=== PATIENT | male | born 1955 | race Two or more races ===

== ENCOUNTER → 2016-08-14 | Day surgery (SDC) | payer OTHER ==
[~2016-08-14] VITALS: Ht 170.2 cm; Wt 106.6 kg
[2016-08-14] VITALS (18 sets, daily range): BP systolic 116–141; BP diastolic 70–89
[~2016-08-14] MED LIST: HYZAAR 50-12.51 EACH ORAL; Lidocaine 1% Plain 30 ml INJ ONE; METFORMIN HCL500 M1 ORAL; Midazolam 2mg/2ml Inj ONE; Morphine Sulfate 4mg/ml Inj IVP ONE; PROSCAR5 MG ORAL; Sodium Bicarbonate 8.4% 50ml Inj ONE; TAMSULOSIN HCL0.4 MG ORAL; fentaNYL 100 mcg/2 mL IV ONE
[2016-08-14 08:29] LABS: BASOPHILS % (AUTO) 0.8 % (0.0-2.0); EOSINOPHILS % (AUTO) 6.4 % (0.0-3.0); LYMPHOCYTES % (AUTO) 27.2 % (20.0-45.0); MEAN CORPUSCULAR HEMOGLOBIN 32.2 PG (27.0-31.0); MEAN CORPUSCULAR HGB CONC 33.8 G/DL (32.0-36.0); MEAN CORPUSCULAR VOLUME 95 FL (80-99); MEAN PLATELET VOLUME 8.3 FL (6.5-10.1); MONOCYTES % (AUTO) 6.6 % (1.0-10.0); PLATELET COUNT 103 K/UL (150-450); RED BLOOD COUNT 4.54 M/UL (4.70-6.10); RED CELL DISTRIBUTION WIDTH 12.9 % (11.6-14.8); WHITE BLOOD COUNT 6.3 K/UL (4.8-10.8)
[2016-08-14 08:40] LABS: INR 1.3 (0.9-1.1); PROTHROMBIN TIME 13.6 SEC (9.30-11.50)
--- NOTE | 2016-08-14 11:21 | Pre-Procedure Note/Attestation ---
Pre-Procedure Note/Attestation Complete Prior to Procedure Planned Procedure: not applicable Procedure Narrative: US guided liver bx Indications for Procedure Pre-Operative Diagnosis: fatty liver Attestation I attest that I discussed the nature of the procedure; its benefits; risks and complications; and alternatives (and the risks and benefits of such alternatives ), prior to the procedure, with the patient (or the patient's legal b2b outside sales representative). I attest that, if there was a reasonable possibility of needing a blood transfusion, the patient (or the patient's legal b2b outside sales representative) was given the [facility] standardized written summary, pursuant to the Yariel Izaiah Blood Safety Act ([place] Health and Safety Code # 1645, as amended). I attest that I re-evaluated the patient just prior to the surgery and that there has been no change in the patient's H&P, except as documented below: ADAMS BRYANT M.D. Aug 14, 2016 11:21
--- NOTE | 2016-08-14 11:21 | Moderate Sedation - Procedural ---
Moderate Sedation HPI Home Medication Reported Medications Metformin Hcl* (METFORMIN HCL*) 500 Mg Tablet, 500 MG ORAL DA, TAB 08/14/16 Tamsulosin Hcl (TAMSULOSIN HCL*) 0.4 Mg Cap.er.24h, 0.4 MG ORAL BEDTIME, CAP 08/14/16 Finasteride* (PROSCAR*) 5 Mg Tablet, 5 MG ORAL DAILY, #30 TAB 0 Refills 08/14/16 Losartan/Hydrochlorothiazide 50-12.5 Tablet* (HYZAAR 50-12.5 TABLET*) 1 Each Tablet, 1 TAB ORAL DAILY, TAB 08/14/16 Patient History Allergies: Coded Allergies: SULFA (SULFONAMIDE ANTIBIOTICS) (Verified Allergy, Severe, 08/14/16) SKIN RASH PAST MEDICAL HISTORY: Past Surgeries: Social History: Pre-Procedural Mod Sedation Date: Aug 14, 2016 Pre-Sedation Assessment: Elective Airway Assessment (Malampati): III Evaluation Hx of untoward rxns to mod sed: No Procedures/Plans: Radiology Plan for Moderate Sedation: Midazolam, Fentanyl ASA Score: I Informed Consent The nature of the procedure/sedation; its benefits; risks and complications; and alternatives (and the risks and benefits of such alternatives) were discussed with the patient (or their legal exhibit display representative), prior to the procedure. All questions were answered to the patient's (or their legal exhibit display representative's) satisfaction and the patient (or their legal exhibit display representative) gave informed consent to the procedure. I attest that I re-evaluated the patient just prior to the surgery and that there has been no change in the patient's H&P, except as documented below: Post Procedure Assessment Communication: No Apparent Limitation Mental Status: Awake Respiration: Unlabored Skin Condition: WNL Adomen: WNL Nausea: NO Vomiting: NO ADAMS BRYANT M.D. Aug 14, 2016 11:21
--- NOTE | 2016-08-14 11:48 | Diagnostic Imaging Report ---
Indication: Abdominal pain Technique: Yuen-scale and duplex images of the upper abdomen were obtained Comparison: None Findings: Gallbladder is surgically absent. Common bile duct measures 6 mm in diameter. No intrahepatic biliary ductal dilatation. Liver demonstrates coarsened echogenicity. There is liver surface micro-nodularity. No focal abnormality. Portal vein and hepatic veins are patent.. Pancreas is unremarkable. Spleen is enlarged, measuring 15.2 cm long axis dimension. Left kidney measures 12.4 cm in length. Right kidney measures 12.4 cm length. Both kidneys demonstrate normal echogenicity. There is no hydronephrosis. No focal abnormality. . Abdominal aorta is partially obscured by bowel gas, visualized portions are non-aneurysmal. Impression: Coarsened hepatic echogenicity and liver surface micro-nodularity, consistent with reported clinical history of hepatic cirrhosis Surgically absent gallbladder. Negative for biliary ductal dilatation Splenomegaly, may indicate portal hypertension
[2016-08-14] MEDS: Norco 10mg/325mg tab ORAL PRN ×2 (12:20→12:23)
--- NOTE | 2016-08-14 14:41 | Diagnostic Imaging Report ---
Indication: History of hepatic steatosis, liver biopsy for clinical trial Technique: Informed consent obtained prior to commencement of the procedure. Risks, including but not limited to hemorrhage, infection, sampling error, sedation complications discussed with patient, all questions answered. He indicated his willingness to proceed. Procedure timeout performed. Ultrasound used to localize optimal puncture site in the right hepatic lobe. Skin sterilely prepped and draped. Local anesthesia with 1% lidocaine. Under real-time ultrasound guidance, 2 needle passes made into the right hepatic lobe using 16-gauge achieve biopsy gun. Images were archived. Specimens were placed in formalin. Specimen was taken by clinical trial nurseLeta, for appropriate dispensation. The patient tolerated the procedure well, without immediate complication. Fentanyl and Versed were used for intraprocedural sedation and analgesia Comparison: None Findings: Intraprocedural images document needle placement within the right hepatic lobe Impression: Parenchymal biopsy of right hepatic lobe, as described
== END | disposition home or self-care (01) ==
LOC: SUR 08:10 → ULS 08:10
DX: K76.0 Fatty (change of) liver, not elsewhere classified (principal); R16.1 Splenomegaly, not elsewhere classified; Z88.2 Allergy status to sulfonamides
CPT/HCPCS: 36415; 47000; 76700; 76942; 82962; 85025; 85610; 85730; J2001; J2250; J3010; J3490

== ENCOUNTER 2016-09-25 09:30 | Outpatient (CLI) | payer OTHER ==
[~2016-09-25 09:30] MED LIST changes: -Lidocaine 1% Plain 30 ml INJ ONE; -Midazolam 2mg/2ml Inj ONE; -Morphine Sulfate 4mg/ml Inj IVP ONE; -Sodium Bicarbonate 8.4% 50ml Inj ONE; -fentaNYL 100 mcg/2 mL IV ONE
--- NOTE | 2016-09-25 12:54 | Diagnostic Imaging Report ---
Indication: PAIN liver cirrhosis Technique: Yuen-scale and duplex images of the upper abdomen were obtained Comparison: 08/14/2016 Findings: Gallbladder is surgically absent. Sonographic Edward's sign is negative. Common bile duct measures 5 mm in diameter. No intrahepatic biliary ductal dilatation. The liver demonstrates diffusely coarsened echogenicity, compatible with diffuse parenchymal disease. There is mild surface micro-nodularity. No focal abnormality. Is somewhat enlarged. Portal vein and hepatic veins are patent. Pancreas is unremarkable. The spleen is enlarged, long axis 14.5 cm. Left kidney measures 12.6 cm in length. Right kidney measures 11.9 cm length. Both kidneys demonstrate normal echogenicity. There is no hydronephrosis. There is a 13 mm cyst in the lower pole right kidney. Non-aneurysmal abdominal aorta . No significant interim change, except that the left renal cyst was not demonstrated on the previous exam. Impression: Surgically absent gallbladder. Negative for dilated ducts Enlarged echogenic liver with surface micro-nodularity, consistent with known history of hepatic cirrhosis, also previously described Splenomegaly Incidental finding left renal cyst
== END 2016-09-25 11:00 | disposition home or self-care (01) ==
LOC: ULS 09:30
DX: K76.0 Fatty (change of) liver, not elsewhere classified (principal); R16.1 Splenomegaly, not elsewhere classified; N28.1 Cyst of kidney, acquired; Z90.49 Acquired absence of other specified parts of digestive tract
CPT/HCPCS: 76700

== ENCOUNTER 2018-02-18 11:28 | Outpatient (CLI) | payer OTHER | END 2018-02-18 13:28 | disposition home or self-care (01) | LOC: ULS 11:28 | DX: K76.0 Fatty (change of) liver, not elsewhere classified (principal) | CPT/HCPCS: 76700 ==

== ENCOUNTER 2018-07-29 11:02 | Outpatient (CLI) | payer OTHER ==
--- NOTE | 2018-07-29 14:28 | Diagnostic Imaging Report ---
Indication: Abdominal pain, history of nonalcoholic fatty liver disease Technique: Uyen-scale and duplex images of the upper abdomen were obtained. Doppler interrogation of the hepatic and pancreatic vessels Comparison: 02/18/2018 Findings: Gallbladder is surgically absent. Common bile duct measures 4 mm in diameter. No intrahepatic biliary ductal dilatation. Liver demonstrates coarsened echogenicity, and some surface nodularity. This is also demonstrated previously. No focal abnormality Portal vein and hepatic veins are patent. Pancreas is incompletely visualized due to overlying bowel gas, visualized portions are unremarkable. The spleen is enlarged, measuring 14.5 cm long axis dimension Left kidney measures 12.7 cm in length. Right kidney measures 12 cm length. Both kidneys demonstrate normal echogenicity. There is no hydronephrosis. A small cyst is seen in the left kidney. There is a tiny cyst in the right renal lower pole, also evident previously . Non-aneurysmal abdominal aorta . Findings are unchanged from the prior exam Impression: Hepatic surface nodularity, consistent with cirrhosis, also previously reported Status post cholecystectomy. Negative for dilated bile ducts Splenomegaly Note Limited visibility of the pancreas
== END 2018-07-29 13:02 | disposition home or self-care (01) ==
LOC: ULS 11:02
DX: K76.0 Fatty (change of) liver, not elsewhere classified (principal); R10.9 Unspecified abdominal pain; N20.0 Calculus of kidney; Z90.49 Acquired absence of other specified parts of digestive tract; R16.1 Splenomegaly, not elsewhere classified
CPT/HCPCS: 76700